=== PATIENT | male | born 1960 | race Caucasian/White ===

== ENCOUNTER 2018-04-17 10:55 | Observation (INO) | payer OTHER, BC ==
[~2018-04-17] VITALS: Ht 188 cm; Wt 97.3 kg
[2018-04-17 11:30] LABS: HEMATOCRIT 41.4 % (38.0-50.0); HEMOGLOBIN 14.2 G/DL (12.5-16.6); MCHC 34.3 G/DL (30.0-36.0); MCV 87.5 FL (86-99); PLATELET COUNT 205 K/uL (156-360); RBC DIS.WIDTH-CV 12.5 % (11.8-14.6); RBC DIS.WIDTH-SD 39.9 % (39-53); RED BLOOD COUNT 4.73 M/uL (4.00-5.50); WHITE BLOOD COUNT 7.9 K/uL (4.1-10.2)
[2018-04-17 11:41] LABS: CHLORIDE 105 mEq/L (99-109); SODIUM 138 mEq/L (136-147)
[2018-04-17 11:42] LABS: GLUCOSE 102 mg/dL (70-99)
[2018-04-17 11:46] LABS: GFR ESTIMATE (CALCULATED) > 59 mL/min/ (58.99-99999)
[2018-04-17 11:47] LABS: UREA NITROGEN (BUN) 15 mg/dL (9-23)
[2018-04-17 11:51] LABS: TROP-I INTERPRETATION NEGATIVE; TROPONIN-I < 0.01 ng/mL (0.0-0.30)
[2018-04-17 12:09] LABS: APPEARANCE CLEAR ((CLEAR)); BILIRUBIN NEGATIVE; BLOOD NEGATIVE; COLOR COLORLESS ((YELLOW)); GLUCOSE (STRIP) NEGATIVE; KETONES NEGATIVE; LEUKOCYTES NEGATIVE; NITRITE NEGATIVE; PROTEIN (STRIP) NEGATIVE; SPECIFIC GRAVITY 1.003 (1.000-1.030); UCUL ADDED? NO; UROBILINOGEN 0.2 MG/DL (0.2-1.0)
[2018-04-17 12:43] LABS: HDL CHOLESTEROL 41 MG/DL (Desirable>=40); LDL CHOLESTEROL 154 mg/dL (Desirable<100); NON-HDL CHOLESTEROL 218 mg/dL (Desirable<160); TOTAL CHOLESTEROL 259 mg/dL (Desirable<200); TRIGLYCERIDES 320 MG/DL (Normal: <150)
[2018-04-17 13:37] LABS: HEMOGLOBIN A1c (GLYCOHEMOGLOB) 6.1 % (Below 5.7)
[2018-04-17] MEDS ORDERED: ENDOCET 5-3251 EACH PO (14:56)
[2018-04-17] MEDS ORDERED: LISINOPRIL10 MG PO (14:56)
[2018-04-17] MEDS ORDERED: OXYCONTIN10 MG PO (14:56)
[2018-04-17] MEDS ORDERED: GABAPENTIN600 MG PO (14:57)
[2018-04-17] MEDS ORDERED: TEMAZEPAM15 MG PO (14:57)
[2018-04-17] MEDS ORDERED: EZETIMIBE10 MG PO (14:57)
[2018-04-17 20:22] VITALS: BP 109/63
[2018-04-18 00:42] VITALS: BP 98/56
[2018-04-18 04:15] VITALS: BP 109/63
[2018-04-18 07:33] VITALS: BP 112/64
[2018-04-18 11:33] VITALS: BP 125/80
[2018-04-18] MEDS ORDERED: NICOTINE PATCH1 EAC1 TD (14:25)
[2018-04-18] MEDS ORDERED: ATORVASTATIN CA40 MG PO (14:26)
[2018-04-18] MEDS ORDERED: ASPIRIN EC325 MG PO (14:28)
== END 2018-04-18 16:24 | disposition home or self-care (01) ==
LOC: EME 10:55 → EDOF 14:22 → 4SOUTH 14:22 → EDOF 14:22 → ENRESERV 14:24 → 4SOUTH 15:15
PROVIDERS: Emergency Medicine
PROC: B246ZZZ Ultrasonography of Right and Left Heart (ICD-10-PCS; principal; 2018-04-18)
DX: R20.0 Anesthesia of skin (principal); F17.210 Nicotine dependence, cigarettes, uncomplicated; R10.9 Unspecified abdominal pain; I10 Essential (primary) hypertension; E78.5 Hyperlipidemia, unspecified; R73.03 Prediabetes; G89.29 Other chronic pain; M54.5 Low back pain; R00.1 Bradycardia, unspecified
CPT/HCPCS: 70450; 70496; 70498; 70551; 80048; 80061; 81003; 83036; 84484; 85027; 93005; 93306; 99281; 99285; G0378; J1644; J1650